=== PATIENT | female | born 1960 | race African-American/Black ===

== ENCOUNTER 2016-12-19 14:46 | Inpatient (IN) | payer MEDICAID ==
[~2016-12-19] VITALS: Ht 157.5 cm; Wt 65.0 kg
[~2016-12-19 14:46] MED LIST: DIPH25 PO; DIVA250T45 PO; OLAN7.5T2 PO
[2016-12-19 16:29] LABS: BASOPHILS # (AUTO) 0.02 K/uL (0.00-0.20); BASOPHILS % (AUTO) 0.3 % (0.0-2.0); EOSINOPHILS # (AUTO) 0.06 K/uL (0.00-0.70); EOSINOPHILS % (AUTO) 0.76 % (1.0-6.0); HEMATOCRIT 45.3 % (36-46); HEMOGLOBIN 14.7 g/dL (12.0-16.0); LYMPHOCYTES # (AUTO) 3.3 K/uL (1.0-4.8); LYMPHOCYTES % (AUTO) 40.2 % (22.0-44.0); MEAN CORPUSCULAR HGB CONC 32.4 G/dL (31.0-37.0); MEAN CORPUSCULAR VOLUME 90 fL (80-100); MONOCYTES # (AUTO) 0.6 K/uL (0.1-1.0); MONOCYTES % (AUTO) 6.7 % (2.0-9.0); NEUTROPHILS # (AUTO) 4.3 K/uL (1.8-7.7); NEUTROPHILS % (AUTO) 52.1 % (40.0-70.0); PLATELET COUNT (AUTO) 235 K/uL (150-450); RED BLOOD CELL COUNT(AUTO) 5.06 MIL/uL (4.00-5.20); RED CELL DISTRIBUTION WIDTH 14.5 % (11.5-14.5); WHITE BLOOD COUNT (AUTO) 8.2 K/uL (4.5-11.0)
[2016-12-19 16:41] LABS: ANION GAP 10 mmol/L (8-16); CALCIUM, TOTAL 9.6 mg/dL (8.8-10.5); CARBON DIOXIDE 29 mmol/L (22-29); CHLORIDE 101 mmol/L (98-107); CREATININE 1.16 mg/dL (0.60-1.30); GLOMERULAR FILTR. RATE CALC 58 mL/min (>60); POTASSIUM 3.9 mmol/L (3.5-5.1); SODIUM SERUM 140 mmol/L (136-145); UREA NITROGEN, BLOOD 8 mg/dL (7-18)
[2016-12-19 16:47] LABS: ALANINE AMINOTRANSFERASE 58 U/L (12-78); ALBUMIN 4.2 g/dL (3.4-5.0); ASPARTATE AMINOTRANSFERASE 44 U/L (15-37); BILIRUBIN,TOTAL 0.5 mg/dL (0.1-1.0); TOTAL PROTEIN, SERUM 9.6 g/dL (6.4-8.2)
[2016-12-19] MEDS ORDERED: LORazepam 2 MG/ML VIAL IM ONE (19:15)
[2016-12-19] MEDS ORDERED: DiphenhydrAMINE HCL 50 MG/ML VIAL IM ONE (19:15)
[2016-12-19] MEDS ORDERED: HALOPERIDOL LACTATE 5 MG/ML VIAL IM ONE (19:15)
[2016-12-19] MEDS ORDERED: HALOPERIDOL 5 MG TABLET PO PRN (23:45)
[2016-12-19] MEDS ORDERED: ZOLPIDEM TARTRATE 10 MG TABLET PO PRN (23:45)
[2016-12-19] MEDS ORDERED: LORazepam 2 MG TABLET PO PRN (23:45)
[2016-12-19 23:51] VITALS: BP 134/90
[2016-12-20 00:27] VITALS: BP 134/90
[2016-12-20 10:42] VITALS: BP 144/64
[2016-12-20 16:54] VITALS: BP 115/66
[2016-12-20] MEDS ORDERED: DIVALPROEX SODIUM 250 MG ER TABLET PO SCH (21:00)
[2016-12-20] MEDS ORDERED: DiphenhydrAMINE HCL 25 MG CAPSULE PO SCH (21:00)
[2016-12-20] MEDS: DiphenhydrAMINE HCL 50 MG CAPSULE PO SCH (21:21)
[2016-12-20] MEDS: OLANZapine 7.5 MG TABLET PO SCH (21:22)
[2016-12-20] MEDS: DIVALPROEX SODIUM 250 MG ER TABLET PO SCH (21:23)
[2016-12-20] MEDS ORDERED: ACETAMINOPHEN 325 MG TABLET PO PRN (22:45)
[2016-12-20] MEDS ORDERED: IBUPROFEN 400 MG TABLET PO PRN (22:45)
[2016-12-21 07:04] LABS: BASOPHILS % (AUTO) 0.5 % (0.0-2.0); EOSINOPHILS % (AUTO) 3.3 % (1.0-6.0); HEMATOCRIT 45.7 % (36-46); HEMOGLOBIN 14.6 g/dL (12.0-16.0); LYMPHOCYTES # (AUTO) 3.2 K/uL (1.0-4.8); LYMPHOCYTES % (AUTO) 61.6 % (22.0-44.0); MEAN CORPUSCULAR VOLUME 91 fL (80-100); MONOCYTES # (AUTO) 0.4 K/uL (0.1-1.0); MONOCYTES % (AUTO) 7.2 % (2.0-9.0); NEUTROPHILS # (AUTO) 1.4 K/uL (1.8-7.7); NEUTROPHILS % (AUTO) 27.4 % (40.0-70.0); PLATELET COUNT (AUTO) 192 K/uL (150-450); RED BLOOD CELL COUNT(AUTO) 5.04 MIL/uL (4.00-5.20); RED CELL DISTRIBUTION WIDTH 14.6 % (11.5-14.5); WHITE BLOOD COUNT (AUTO) 5.2 K/uL (4.5-11.0)
[2016-12-21 07:05] VITALS: BP 120/70
[2016-12-21 07:38] LABS: THYROID STIMULATING HORMONE 1.19 uIU/mL (0.36-3.74)
[2016-12-21 07:56] LABS: HEMOGLOBIN A1C 5.3 % (4.5-6.2)
[2016-12-21 08:00] VITALS: BP 108/71
[2016-12-21 16:44] VITALS: BP 116/58
[2016-12-21] MEDS: DIVALPROEX SODIUM 250 MG ER TABLET PO SCH (21:03)
[2016-12-21] MEDS: DiphenhydrAMINE HCL 50 MG CAPSULE PO SCH (21:04)
[2016-12-21] MEDS: OLANZapine 7.5 MG TABLET PO SCH (21:04)
[2016-12-22 08:03] VITALS: BP 129/87
[2016-12-22 17:04] VITALS: BP 122/72
[2016-12-22] MEDS: DiphenhydrAMINE HCL 50 MG CAPSULE PO SCH (20:08)
[2016-12-22] MEDS: OLANZapine 7.5 MG TABLET PO SCH (20:08)
[2016-12-22] MEDS: DIVALPROEX SODIUM 250 MG ER TABLET PO SCH (20:08)
[2016-12-23 08:05] VITALS: BP 140/73
[2016-12-23 18:08] VITALS: BP 118/77
[2016-12-23] MEDS: DIVALPROEX SODIUM 250 MG ER TABLET PO SCH (20:09)
[2016-12-23] MEDS: OLANZapine 7.5 MG TABLET PO SCH (20:09)
[2016-12-23] MEDS: DiphenhydrAMINE HCL 50 MG CAPSULE PO SCH (20:09)
[2016-12-24 08:07] VITALS: BP 126/77
== END 2016-12-24 14:22 | disposition home or self-care (01) | DRG 750 ==
LOC: EMS 14:47 → 3EI 12-20 00:04 → EMS 12-20 00:12
DX: F25.0 Schizoaffective disorder, bipolar type (principal); R45.851 Suicidal ideations; G89.29 Other chronic pain; N18.9 Chronic kidney disease, unspecified; F17.210 Nicotine dependence, cigarettes, uncomplicated; M54.9 Dorsalgia, unspecified; F19.10 Other psychoactive substance abuse, uncomplicated; F99 Mental disorder, not otherwise specified; Z91.5 Personal history of self-harm; Z79.899 Other long term (current) drug therapy
CPT/HCPCS: 83036; 84443; 96372; 99285; G0480; J1200; J1630; J2060

== ENCOUNTER 2017-02-22 14:47 | Emergency (ER) | payer MEDICAID ==
[~2017-02-22] VITALS: Ht 157.5 cm; Wt 63.5 kg
[2017-02-22] MEDS ORDERED: IBUPROFEN 800 MG TABLET PO ONE (17:00)
[2017-02-22 17:05] VITALS: BP 139/67
== END 2017-02-22 17:50 | disposition home or self-care (01) ==
LOC: EMS 14:48
DX: S52.501A Unspecified fracture of the lower end of right radius, initial encounter for closed fracture (principal); R03.0 Elevated blood-pressure reading, without diagnosis of hypertension; F17.210 Nicotine dependence, cigarettes, uncomplicated; W01.0XXA Fall on same level from slipping, tripping and stumbling without subsequent striking against object, initial encounter; Y93.89 Activity, other specified; Y92.89 Other specified places as the place of occurrence of the external cause; Y99.8 Other external cause status
CPT/HCPCS: 99284

== ENCOUNTER 2017-04-05 11:34 | Emergency (ER) | payer MEDICAID ==
[~2017-04-05] VITALS: Ht 157.5 cm; Wt 54.5 kg
[2017-04-05] MEDS ORDERED: IBUPROFEN 600 MG TABLET PO ONE (13:30)
[2017-04-05 14:44] VITALS: BP 128/77
== END 2017-04-05 14:47 | disposition home or self-care (01) ==
LOC: EMS 11:35
DX: M25.531 Pain in right wrist (principal); F17.210 Nicotine dependence, cigarettes, uncomplicated
CPT/HCPCS: 99283

== ENCOUNTER 2017-08-10 11:51 | Emergency (ER) | payer MEDICAID ==
[~2017-08-10] VITALS: Ht 157.5 cm; Wt 54.5 kg
[2017-08-10 12:36] LABS: BASOPHILS # (AUTO) 0.03 K/uL (0.00-0.20); BASOPHILS % (AUTO) 0.5 % (0.0-2.0); EOSINOPHILS # (AUTO) 0.18 K/uL (0.00-0.70); EOSINOPHILS % (AUTO) 3.28 % (1.0-6.0); HEMATOCRIT 40.6 % (36-46); HEMOGLOBIN 13.5 g/dL (12.0-16.0); LYMPHOCYTES # (AUTO) 2.9 K/uL (1.0-4.8); LYMPHOCYTES % (AUTO) 53.1 % (22.0-44.0); MEAN CORPUSCULAR HGB CONC 33.3 G/dL (31.0-37.0); MEAN CORPUSCULAR VOLUME 87 fL (80-100); MONOCYTES # (AUTO) 0.4 K/uL (0.1-1.0); MONOCYTES % (AUTO) 7.5 % (2.0-9.0); NEUTROPHILS # (AUTO) 1.9 K/uL (1.8-7.7); NEUTROPHILS % (AUTO) 35.5 % (40.0-70.0); PLATELET COUNT (AUTO) 183 K/uL (150-450); RED BLOOD CELL COUNT(AUTO) 4.66 MIL/uL (4.00-5.20); RED CELL DISTRIBUTION WIDTH 14.1 % (11.5-14.5); WHITE BLOOD COUNT (AUTO) 5.4 K/uL (4.5-11.0)
[2017-08-10 12:57] LABS: ANION GAP 8 mmol/L (8-16); CALCIUM, TOTAL 9.1 mg/dL (8.8-10.5); CARBON DIOXIDE 26 mmol/L (22-29); CHLORIDE 105 mmol/L (98-107); CREATININE 1.02 mg/dL (0.60-1.30); GLOMERULAR FILTR. RATE CALC > 60 mL/min (>60); POTASSIUM 3.7 mmol/L (3.5-5.1); SODIUM SERUM 139 mmol/L (136-145); UREA NITROGEN, BLOOD 15 mg/dL (7-18)
[2017-08-10 13:03] LABS: ALANINE AMINOTRANSFERASE 49 U/L (12-78); ALBUMIN 3.8 g/dL (3.4-5.0); ASPARTATE AMINOTRANSFERASE 38 U/L (15-37); BILIRUBIN,TOTAL 0.5 mg/dL (0.1-1.0)
[2017-08-10] MEDS ORDERED: HALOPERIDOL 5 MG TABLET PO ONE (13:15)
[2017-08-10 13:17] LABS: VALPROIC ACID < 3 mcg/mL (50-100)
[2017-08-10 14:08] VITALS: BP 126/88
== END 2017-08-10 14:18 | disposition home or self-care (01) ==
LOC: EMS 11:53
DX: F20.9 Schizophrenia, unspecified (principal); F41.9 Anxiety disorder, unspecified; F17.210 Nicotine dependence, cigarettes, uncomplicated
CPT/HCPCS: 36415; 80053; 80164; 85025; 99284; G0480

== ENCOUNTER 2017-09-03 07:50 | Inpatient (IN) | payer MEDICAID ==
[~2017-09-03] VITALS: Ht 157.5 cm; Wt 61.1 kg
[2017-09-03 08:26] LABS: BASOPHILS % (AUTO) 0.5 % (0.0-2.0); HEMATOCRIT 45.7 % (36-46); HEMOGLOBIN 15.4 g/dL (12.0-16.0); LYMPHOCYTES # (AUTO) 2.3 K/uL (1.0-4.8); LYMPHOCYTES % (AUTO) 39.4 % (22.0-44.0); MEAN CORPUSCULAR HEMOGLOBIN 29.6 pg (26.0-34.0); MEAN CORPUSCULAR HGB CONC 33.6 G/dL (31.0-37.0); MEAN CORPUSCULAR VOLUME 88 fL (80-100); MONOCYTES # (AUTO) 0.3 K/uL (0.1-1.0); MONOCYTES % (AUTO) 4.5 % (2.0-9.0); NEUTROPHILS # (AUTO) 3.2 K/uL (1.8-7.7); NEUTROPHILS % (AUTO) 54.6 % (40.0-70.0); PLATELET COUNT (AUTO) 256 K/uL (150-450); RED BLOOD CELL COUNT(AUTO) 5.18 MIL/uL (4.00-5.20); WHITE BLOOD COUNT (AUTO) 5.9 K/uL (4.5-11.0)
[2017-09-03 08:44] LABS: ANION GAP 10 mmol/L (8-16); CALCIUM, TOTAL 9.7 mg/dL (8.8-10.5); CARBON DIOXIDE 26 mmol/L (22-29); CHLORIDE 102 mmol/L (98-107); CREATININE 0.91 mg/dL (0.60-1.30); GLOMERULAR FILTR. RATE CALC > 60 mL/min (>60); POTASSIUM 3.7 mmol/L (3.5-5.1); SODIUM SERUM 138 mmol/L (136-145); UREA NITROGEN, BLOOD 8 mg/dL (7-18)
[2017-09-03 08:51] LABS: ALANINE AMINOTRANSFERASE 52 U/L (12-78); ALBUMIN 4.3 g/dL (3.4-5.0); ASPARTATE AMINOTRANSFERASE 37 U/L (15-37); BILIRUBIN,TOTAL 0.4 mg/dL (0.1-1.0); TOTAL PROTEIN, SERUM 9.1 g/dL (6.4-8.2)
[2017-09-03 08:54] LABS: VALPROIC ACID < 3 mcg/mL (50-100)
[2017-09-03] MEDS ORDERED: OLANZapine 5 MG TABLET PO ONE (09:15)
[2017-09-03] MEDS ORDERED: LORazepam 2 MG TABLET PO ONE (09:15)
[2017-09-03] MEDS ORDERED: HALOPERIDOL 5 MG TABLET PO PRN (09:45)
[2017-09-03] MEDS ORDERED: LORazepam 2 MG TABLET PO PRN (09:45)
[2017-09-03] MEDS ORDERED: ZOLPIDEM TARTRATE 10 MG TABLET PO PRN (09:45)
[2017-09-03] MEDS: DIVALPROEX SODIUM 250 MG ER TABLET PO SCH (22:01)
[2017-09-03] MEDS: OLANZapine 7.5 MG TABLET PO SCH (22:01)
[2017-09-03] MEDS: DiphenhydrAMINE HCL 25 MG CAPSULE PO SCH (22:01)
[2017-09-03 22:04] VITALS: BP 116/62
[2017-09-03] MEDS ORDERED: INFLUENZA VIRUS VACCINE QVS 2017-18 (3YR+)/PF 60 MCG/0.5 ML SYRINGE IM ONE (22:45)
[2017-09-04 09:58] VITALS: BP 110/70
[2017-09-04] MEDS ORDERED: ACETAMINOPHEN 325 MG TABLET PO PRN (14:00)
[2017-09-04] MEDS ORDERED: IBUPROFEN 400 MG TABLET PO PRN (14:00)
[2017-09-04 18:25] VITALS: BP 112/82
[2017-09-04] MEDS: DIVALPROEX SODIUM 250 MG ER TABLET PO SCH (20:16)
[2017-09-04] MEDS: OLANZapine 7.5 MG TABLET PO SCH (20:16)
[2017-09-04] MEDS: DiphenhydrAMINE HCL 25 MG CAPSULE PO SCH (20:17)
[2017-09-05 08:51] VITALS: BP 110/76
[2017-09-05 16:09] VITALS: BP 122/68
[2017-09-05] MEDS: DiphenhydrAMINE HCL 25 MG CAPSULE PO SCH (20:37)
[2017-09-05] MEDS: OLANZapine 7.5 MG TABLET PO SCH (20:38)
[2017-09-05] MEDS: DIVALPROEX SODIUM 250 MG ER TABLET PO SCH (20:38)
[2017-09-06 08:14] VITALS: BP 125/72
[2017-09-06 16:10] VITALS: BP 117/65
[2017-09-06] MEDS: OLANZapine 7.5 MG TABLET PO SCH (20:38)
[2017-09-06] MEDS: DiphenhydrAMINE HCL 25 MG CAPSULE PO SCH (20:38)
[2017-09-06] MEDS: DIVALPROEX SODIUM 250 MG ER TABLET PO SCH (20:38)
[2017-09-07 06:33] VITALS: BP 123/63
[2017-09-07 08:41] VITALS: BP 135/70
[2017-09-07 16:18] VITALS: BP 133/73
[2017-09-07] MEDS: DiphenhydrAMINE HCL 25 MG CAPSULE PO SCH (20:14)
[2017-09-07] MEDS: DIVALPROEX SODIUM 250 MG ER TABLET PO SCH (20:14)
[2017-09-07] MEDS: OLANZapine 7.5 MG TABLET PO SCH (20:14)
[2017-09-08 06:02] VITALS: BP 130/76
[2017-09-08 08:25] VITALS: BP 128/73
[2017-09-08 16:07] VITALS: BP 118/66
[2017-09-08] MEDS: DIVALPROEX SODIUM 250 MG ER TABLET PO SCH (20:26)
[2017-09-08] MEDS: DiphenhydrAMINE HCL 25 MG CAPSULE PO SCH (20:26)
[2017-09-08] MEDS: OLANZapine 7.5 MG TABLET PO SCH (20:26)
[2017-09-09 06:27] VITALS: BP 129/78
[2017-09-09 08:30] VITALS: BP 151/72
[2017-09-09 16:00] VITALS: BP 137/71
[2017-09-09] MEDS: DIVALPROEX SODIUM 250 MG ER TABLET PO SCH (20:11)
[2017-09-09] MEDS: DiphenhydrAMINE HCL 25 MG CAPSULE PO SCH (20:11)
[2017-09-09] MEDS: OLANZapine 7.5 MG TABLET PO SCH (20:11)
[2017-09-10 06:33] VITALS: BP 134/74
[2017-09-10 08:47] VITALS: BP 126/55
== END 2017-09-10 13:10 | disposition home or self-care (01) | DRG 750 ==
LOC: EEVIPCON 07:51 → EMS 07:51 → B3A 20:34
PROVIDERS: ADMIT Psychiatry & Neurology Psychiatry; ATTEND Psychiatry & Neurology Child & Adolescent Psychiatry
DX: F25.1 Schizoaffective disorder, depressive type (principal); N18.3 Chronic kidney disease, stage 3 (moderate); F39 Unspecified mood [affective] disorder; I12.9 Hypertensive chronic kidney disease with stage 1 through stage 4 chronic kidney disease, or unspecified chronic kidney disease; F10.10 Alcohol abuse, uncomplicated; F17.200 Nicotine dependence, unspecified, uncomplicated; M54.9 Dorsalgia, unspecified; G89.29 Other chronic pain; Z71.6 Tobacco abuse counseling; Y90.9 Presence of alcohol in blood, level not specified; Z28.21 Immunization not carried out because of patient refusal
CPT/HCPCS: 99285; G0480

== ENCOUNTER 2017-09-27 05:02 | Inpatient (IN) | payer MEDICAID ==
[~2017-09-27] VITALS: Ht 157.5 cm; Wt 64.8 kg
[2017-09-27 05:36] LABS: BASOPHILS % (AUTO) 0.7 % (0.0-2.0); EOSINOPHILS % (AUTO) 8.2 % (1.0-6.0); HEMATOCRIT 42.3 % (36-46); HEMOGLOBIN 14.2 g/dL (12.0-16.0); LYMPHOCYTES # (AUTO) 2.6 K/uL (1.0-4.8); MEAN CORPUSCULAR HEMOGLOBIN 29.5 pg (26.0-34.0); MEAN CORPUSCULAR HGB CONC 33.5 G/dL (31.0-37.0); MEAN CORPUSCULAR VOLUME 88 fL (80-100); MONOCYTES # (AUTO) 0.6 K/uL (0.1-1.0); MONOCYTES % (AUTO) 7.8 % (2.0-9.0); NEUTROPHILS # (AUTO) 3.5 K/uL (1.8-7.7); NEUTROPHILS % (AUTO) 48.3 % (40.0-70.0); PLATELET COUNT (AUTO) 354 K/uL (150-450); RED CELL DISTRIBUTION WIDTH 15.7 % (11.5-14.5); WHITE BLOOD COUNT (AUTO) 7.3 K/uL (4.5-11.0)
[2017-09-27 05:46] LABS: ANION GAP 7 mmol/L (8-16); CALCIUM, TOTAL 9.5 mg/dL (8.8-10.5); CARBON DIOXIDE 30 mmol/L (22-29); CHLORIDE 102 mmol/L (98-107); CREATININE 1.02 mg/dL (0.60-1.30); GLOMERULAR FILTR. RATE CALC > 60 mL/min (>60); POTASSIUM 4.2 mmol/L (3.5-5.1); SODIUM SERUM 139 mmol/L (136-145); UREA NITROGEN, BLOOD 15 mg/dL (7-18)
[2017-09-27 05:52] LABS: ALANINE AMINOTRANSFERASE 65 U/L (12-78); ALBUMIN 3.7 g/dL (3.4-5.0); ASPARTATE AMINOTRANSFERASE 52 U/L (15-37); BILIRUBIN,TOTAL 0.3 mg/dL (0.1-1.0); TOTAL PROTEIN, SERUM 8.8 g/dL (6.4-8.2)
[2017-09-27] MEDS ORDERED: ZOLPIDEM TARTRATE 10 MG TABLET PO PRN (06:00)
[2017-09-27] MEDS ORDERED: HALOPERIDOL 5 MG TABLET PO PRN (06:00)
[2017-09-27] MEDS ORDERED: LORazepam 2 MG TABLET PO PRN (06:00)
[2017-09-27] MEDS ORDERED: DiphenhydrAMINE HCL 50 MG/ML VIAL IM ONE (06:00)
[2017-09-27] MEDS ORDERED: LORazepam 2 MG/ML VIAL IM ONE (06:00)
[2017-09-27] MEDS ORDERED: HALOPERIDOL LACTATE 5 MG/ML VIAL IM ONE (06:00)
[2017-09-27 06:16] LABS: APPEARANCE,URINE CLEAR (CLEAR); GLUCOSE, URINE (UA) NEGATIVE (NEGATIVE); KETONES,URINE NEGATIVE (NEGATIVE); LEUKOCYTE ESTERASE ,URINE NEGATIVE (NEGATIVE); OCCULT BLOOD,URINE NEGATIVE (NEGATIVE); PH,URINE 5.5 (5.0-8.0); PROTEIN,URINE NEGATIVE (NEGATIVE)
[2017-09-27 06:17] LABS: ADD UA MICROSCOPIC NO
[2017-09-27 06:25] LABS: CHOL/HDL RATIO 2.3 (3.9-5.7); THYROID STIMULATING HORMONE 5.53 uIU/mL (0.36-3.74)
[2017-09-27 10:52] VITALS: BP 130/84
[2017-09-27 17:22] VITALS: BP 128/74
[2017-09-28 07:19] VITALS: BP 125/76
[2017-09-28 08:28] VITALS: BP 124/81
[2017-09-28 16:00] VITALS: BP 100/62
[2017-09-28] MEDS: OLANZapine 7.5 MG TABLET PO SCH (21:35)
[2017-09-28] MEDS: DiphenhydrAMINE HCL 25 MG CAPSULE PO SCH (21:35)
[2017-09-28] MEDS: DIVALPROEX SODIUM 250 MG ER TABLET PO SCH (21:35)
[2017-09-29 06:33] VITALS: BP 128/76
[2017-09-29 08:39] VITALS: BP 131/75
[2017-09-29] MEDS: SERTRALINE HCL 50 MG TABLET PO SCH (08:57)
[2017-09-29 16:25] VITALS: BP 114/72
[2017-09-29] MEDS: OLANZapine 7.5 MG TABLET PO SCH (20:36)
[2017-09-29] MEDS: DiphenhydrAMINE HCL 25 MG CAPSULE PO SCH (20:36)
[2017-09-29] MEDS: DIVALPROEX SODIUM 250 MG ER TABLET PO SCH (20:36)
[2017-09-30 07:07] VITALS: BP 115/70
[2017-09-30 08:12] VITALS: BP 136/67
[2017-09-30] MEDS: SERTRALINE HCL 50 MG TABLET PO SCH (08:50)
[2017-09-30 09:39] LABS: THYROID STIMULATING HORMONE 1.17 uIU/mL (0.36-3.74)
[2017-09-30 17:35] VITALS: BP 108/61
[2017-09-30] MEDS: OLANZapine 7.5 MG TABLET PO SCH (20:24)
[2017-09-30] MEDS: DiphenhydrAMINE HCL 25 MG CAPSULE PO SCH (20:24)
[2017-09-30] MEDS: DIVALPROEX SODIUM 250 MG ER TABLET PO SCH (20:25)
[2017-10-01 07:10] VITALS: BP 107/65
[2017-10-01] MEDS: SERTRALINE HCL 50 MG TABLET PO SCH (08:11)
[2017-10-01 08:45] VITALS: BP 110/62
[2017-10-01 16:00] VITALS: BP 101/71
[2017-10-01] MEDS: DIVALPROEX SODIUM 250 MG ER TABLET PO SCH (20:20)
[2017-10-01] MEDS: OLANZapine 7.5 MG TABLET PO SCH (20:20)
[2017-10-01] MEDS: DiphenhydrAMINE HCL 25 MG CAPSULE PO SCH (20:21)
[2017-10-02 06:51] VITALS: BP 138/61
[2017-10-02] MEDS: SERTRALINE HCL 50 MG TABLET PO SCH (08:20)
[2017-10-02 08:24] VITALS: BP 129/82
[2017-10-02 10:29] LABS: HEPATITIS Bs ANTIGEN SCREEN P Negative (Negative); HEPATITIS C AB SCREEN >11.0 s/co ratio (0.0-0.9)
[2017-10-02 16:10] VITALS: BP 129/77
[2017-10-02] MEDS: OLANZapine 7.5 MG TABLET PO SCH (20:39)
[2017-10-02] MEDS: DiphenhydrAMINE HCL 25 MG CAPSULE PO SCH (20:39)
[2017-10-02] MEDS: DIVALPROEX SODIUM 250 MG ER TABLET PO SCH (20:39)
[2017-10-03 06:20] VITALS: BP 138/75
[2017-10-03] MEDS: SERTRALINE HCL 50 MG TABLET PO SCH (09:18)
[2017-10-03 13:07] VITALS: BP 143/71
[2017-10-03 16:11] VITALS: BP 121/67
[2017-10-03] MEDS: DIVALPROEX SODIUM 250 MG ER TABLET PO SCH (21:12)
[2017-10-03] MEDS: DiphenhydrAMINE HCL 25 MG CAPSULE PO SCH (21:12)
[2017-10-03] MEDS: OLANZapine 7.5 MG TABLET PO SCH (21:13)
[2017-10-04 06:25] VITALS: BP 139/74
[2017-10-04] MEDS: SERTRALINE HCL 50 MG TABLET PO SCH (09:01)
[2017-10-04 09:02] VITALS: BP 109/73
[2017-10-04] MEDS ORDERED: SERT50TA12 PO (11:26)
== END 2017-10-04 15:20 | disposition home or self-care (01) | DRG 750 ==
LOC: EMS 05:03 → B3A 10:06
PROVIDERS: ADMIT Psychiatry & Neurology Child & Adolescent Psychiatry; ATTEND Psychiatry & Neurology Child & Adolescent Psychiatry
DX: F25.1 Schizoaffective disorder, depressive type (principal); R45.851 Suicidal ideations; N18.3 Chronic kidney disease, stage 3 (moderate); F15.20 Other stimulant dependence, uncomplicated; G25.9 Extrapyramidal and movement disorder, unspecified; F41.9 Anxiety disorder, unspecified; F10.20 Alcohol dependence, uncomplicated; M54.5 Low back pain; I12.9 Hypertensive chronic kidney disease with stage 1 through stage 4 chronic kidney disease, or unspecified chronic kidney disease; F17.210 Nicotine dependence, cigarettes, uncomplicated; Z79.899 Other long term (current) drug therapy; Z71.41 Alcohol abuse counseling and surveillance of alcoholic; Z71.6 Tobacco abuse counseling; Z71.51 Drug abuse counseling and surveillance of drug abuser
CPT/HCPCS: 80074; 84439; 84443; 87081; 96372; 99285; G0480; J1200; J1630; J2060

== ENCOUNTER 2018-02-24 16:37 | Emergency (ER) | payer MEDICAID ==
[~2018-02-24] VITALS: Ht 157.5 cm; Wt 70.9 kg
[~2018-02-24 16:37] MED LIST changes: +SERT50TA12 PO
[2018-02-24 18:35] LABS: GLUCOSE,POINT OF CARE 106 MG/DL (70-110)
[2018-02-24 20:00] LABS: BASOPHILS % (AUTO) 0.6 % (0.0-2.0); EOSINOPHILS % (AUTO) 3.1 % (1.0-6.0); HEMATOCRIT 39.1 % (36-46); LYMPHOCYTES # (AUTO) 2.4 K/uL (1.0-4.8); LYMPHOCYTES % (AUTO) 36.6 % (22.0-44.0); MEAN CORPUSCULAR HGB CONC 33.2 G/dL (31.0-37.0); MEAN CORPUSCULAR VOLUME 88 fL (80-100); MONOCYTES # (AUTO) 0.4 K/uL (0.1-1.0); MONOCYTES % (AUTO) 6.6 % (2.0-9.0); NEUTROPHILS # (AUTO) 3.4 K/uL (1.8-7.7); NEUTROPHILS % (AUTO) 53.1 % (40.0-70.0); PLATELET COUNT (AUTO) 261 K/uL (150-450); RED BLOOD CELL COUNT(AUTO) 4.47 MIL/uL (4.00-5.20); RED CELL DISTRIBUTION WIDTH 15.1 % (11.5-14.5)
[2018-02-24] MEDS ORDERED: KETOROLAC TROMETHAMINE 30 MG/ML VIAL IM ONE (20:30)
[2018-02-24 20:46] LABS: PROTHROMBIN TIME 10.3 SEC (9.4-11.6)
[2018-02-24 20:49] LABS: ANION GAP 8 mmol/L (8-16); CALCIUM, TOTAL 8.9 mg/dL (8.8-10.5); CARBON DIOXIDE 26 mmol/L (22-29); CHLORIDE 105 mmol/L (98-107); CREATININE 0.89 mg/dL (0.60-1.30); GLOMERULAR FILTR. RATE CALC > 60 mL/min (>60); GLUCOSE,RANDOM 100 mg/dL (70-110); POTASSIUM 3.7 mmol/L (3.5-5.1); SODIUM SERUM 139 mmol/L (136-145); UREA NITROGEN, BLOOD 11 mg/dL (7-18)
[2018-02-24 20:51] LABS: AMPHET/METH SCREEN,URINE NEGATIVE (NEGATIVE); BARBITURATE SCREEN, URINE NEGATIVE (NEGATIVE); BENZODIAZEPINES SCREEN,URINE NEGATIVE (NEGATIVE); CANNABINOID SCREEN,URINE NEGATIVE (NEGATIVE); COCAINE SCREEN,URINE NEGATIVE (NEGATIVE); METHADONE SCREEN, URINE NEGATIVE (NEGATIVE); OPIATE SCREEN,URINE NEGATIVE (NEGATIVE); PHENCYCLIDINE SCREEN,URINE NEGATIVE (NEGATIVE)
[2018-02-24 20:52] LABS: AMMONIA 20 umol/L (11-32)
[2018-02-24 20:53] LABS: TROPONIN I < 0.02 ng/mL (0.00-0.05)
[2018-02-24 20:59] LABS: APPEARANCE,URINE CLEAR (CLEAR); BILIRUBIN,URINE NEGATIVE (NEGATIVE); GLUCOSE, URINE (UA) NEGATIVE (NEGATIVE); KETONES,URINE NEGATIVE (NEGATIVE); LEUKOCYTE ESTERASE ,URINE NEGATIVE (NEGATIVE); NITRATE,URINE NEGATIVE (NEGATIVE); OCCULT BLOOD,URINE NEGATIVE (NEGATIVE); PH,URINE 5.5 (5.0-8.0); PROTEIN,URINE NEGATIVE (NEGATIVE); UROBILINOGEN,URINE 0.2 mg/dL (<=1.0)
[2018-02-24 21:11] LABS: ALANINE AMINOTRANSFERASE 36 U/L (12-78); ALBUMIN 3.2 g/dL (3.4-5.0); ALKALINE PHOSPHATASE 92 U/L (46-116); ASPARTATE AMINOTRANSFERASE 38 U/L (15-37); BILIRUBIN,TOTAL 0.3 mg/dL (0.1-1.0); CREATINE KINASE MB 0.9 ng/mL (0-5); CREATINE KINASE, TOTAL 202 U/L (26-192); TOTAL PROTEIN, SERUM 7.6 g/dL (6.4-8.2)
[2018-02-24 21:18] LABS: VALPROIC ACID 7 mcg/mL (50-100)
[2018-02-24 22:18] VITALS: BP 135/74
== END 2018-02-24 22:43 | disposition home or self-care (01) ==
LOC: EMS 16:39
DX: G89.29 Other chronic pain (principal); M54.5 Low back pain; R10.9 Unspecified abdominal pain; F20.9 Schizophrenia, unspecified; F17.210 Nicotine dependence, cigarettes, uncomplicated; Z79.899 Other long term (current) drug therapy; W19.XXXA Unspecified fall, initial encounter; Y93.89 Activity, other specified; Y92.89 Other specified places as the place of occurrence of the external cause; Y99.8 Other external cause status
CPT/HCPCS: 36415; 71045; 72170; 80053; 80164; 80307; 81003; 82140; 82550; 82553; 82962; 84484; 85025; 85610; 85730; 93005; 96372; 99285; G0480; J1885

== ENCOUNTER 2018-08-12 11:04 | Inpatient (IN) | payer MEDICAID ==
[~2018-08-12] VITALS: Ht 157.5 cm; Wt 52.2 kg
[2018-08-12 11:53] LABS: BASOPHILS % (AUTO) 0.7 % (0.0-2.0); EOSINOPHILS % (AUTO) 3.2 % (1.0-6.0); HEMATOCRIT 38.5 % (36-46); HEMOGLOBIN 12.4 g/dL (12.0-16.0); LYMPHOCYTES # (AUTO) 2.9 K/uL (1.0-4.8); LYMPHOCYTES % (AUTO) 49.3 % (22.0-44.0); MEAN CORPUSCULAR HEMOGLOBIN 28.2 pg (26.0-34.0); MEAN CORPUSCULAR HGB CONC 32.3 G/dL (31.0-37.0); MEAN CORPUSCULAR VOLUME 87 fL (80-100); MONOCYTES # (AUTO) 0.4 K/uL (0.1-1.0); MONOCYTES % (AUTO) 6.5 % (2.0-9.0); NEUTROPHILS # (AUTO) 2.4 K/uL (1.8-7.7); NEUTROPHILS % (AUTO) 40.3 % (40.0-70.0); PLATELET COUNT (AUTO) 235 K/uL (150-450); RED BLOOD CELL COUNT(AUTO) 4.41 MIL/uL (4.00-5.20)
[2018-08-12 12:02] LABS: ANION GAP 9 mmol/L (8-16); CALCIUM, TOTAL 8.9 mg/dL (8.8-10.5); CARBON DIOXIDE 27 mmol/L (22-29); CHLORIDE 106 mmol/L (98-107); CREATININE 0.76 mg/dL (0.60-1.30); GLOMERULAR FILTR. RATE CALC > 60 mL/min (>60); GLUCOSE,RANDOM 74 mg/dL (70-110); POTASSIUM 3.2 mmol/L (3.5-5.1); SODIUM SERUM 142 mmol/L (136-145); UREA NITROGEN, BLOOD 9 mg/dL (7-18)
[2018-08-12 12:08] LABS: ALANINE AMINOTRANSFERASE 26 U/L (12-78); ALBUMIN 3.3 g/dL (3.4-5.0); ALKALINE PHOSPHATASE 83 U/L (46-116); ASPARTATE AMINOTRANSFERASE 34 U/L (15-37); BILIRUBIN,TOTAL 0.5 mg/dL (0.1-1.0); TOTAL PROTEIN, SERUM 7.4 g/dL (6.4-8.2)
[2018-08-12 13:44] LABS: VALPROIC ACID < 3 mcg/mL (50-100)
[2018-08-12] MEDS ORDERED: ZOLPIDEM TARTRATE 10 MG TABLET PO PRN (14:15)
[2018-08-12] MEDS ORDERED: HALOPERIDOL 5 MG TABLET PO PRN (14:15)
[2018-08-12] MEDS ORDERED: LORazepam 2 MG TABLET PO PRN (14:15)
[2018-08-12] MEDS ORDERED: PETROLATUM,WHITE 71 GM JELLY TP PRN (17:30)
[2018-08-12] MEDS ORDERED: POTASSIUM CHLORIDE 10% 40 MEQ/30 ML LIQUID UDCUP PO ONE (17:30)
[2018-08-12] MEDS ORDERED: CloNIDine HCL 0.1 MG TABLET PO PRN (17:30)
[2018-08-12] MEDS ORDERED: ONDANSETRON HCL 4 MG TABLET PO PRN (17:30)
[2018-08-12] MEDS ORDERED: DOCUSATE SODIUM 100 MG CAPSULE PO PRN (17:30)
[2018-08-12] MEDS ORDERED: ALBUTEROL SULFATE HFA 90 MCG/PUFF 8 GM INHALER IH PRN (17:30)
[2018-08-12] MEDS ORDERED: IBUPROFEN 400 MG TABLET PO PRN (17:30)
[2018-08-12] MEDS ORDERED: ACETAMINOPHEN 325 MG TABLET PO PRN (17:30)
[2018-08-12] MEDS ORDERED: MAGNESIUM HYDROXIDE SUSPENSION 30 ML UDCUP PO PRN (17:30)
[2018-08-12] MEDS ORDERED: NICOTINE 14 MG/24 HOUR PATCH TD PRN (17:30)
[2018-08-12] MEDS ORDERED: GuaiFENesin/D-METHORPHAN [SUGAR-FREE] 200-20MG/10 ML SYRUP UDCUP PO PRN (17:30)
[2018-08-12] MEDS ORDERED: LOPERAMIDE HCL 2 MG CAPSULE PO PRN (17:30)
[2018-08-12 19:30] VITALS: BP 149/74
[2018-08-12] MEDS ORDERED: AmLODIPine BESYLATE 2.5 MG TABLET PO ONE (19:45)
[2018-08-12] MEDS ORDERED: PNEUMOCOCCAL VACCINE POLYVALENT 0.5 ML VIAL [PPSV23] IM ONE (21:15)
[2018-08-12] MEDS: DiphenhydrAMINE HCL 25 MG CAPSULE PO SCH (21:32)
[2018-08-12] MEDS: DIVALPROEX SODIUM 250 MG ER TABLET PO SCH (21:33)
[2018-08-12] MEDS: OLANZapine 5 MG TABLET PO SCH (21:35)
[2018-08-13 06:11] VITALS: BP 120/69
[2018-08-13 08:19] VITALS: BP 120/65
[2018-08-13] MEDS: AmLODIPine BESYLATE 2.5 MG TABLET PO SCH (08:41)
[2018-08-13] MEDS: SERTRALINE HCL 50 MG TABLET PO SCH (08:41)
[2018-08-13 16:11] VITALS: BP 111/57
[2018-08-13] MEDS: OLANZapine 5 MG TABLET PO SCH (20:47)
[2018-08-13] MEDS: DIVALPROEX SODIUM 250 MG ER TABLET PO SCH (20:47)
[2018-08-13] MEDS: DiphenhydrAMINE HCL 25 MG CAPSULE PO SCH (20:47)
[2018-08-13] MEDS ORDERED: POTASSIUM CHLORIDE 20 MEQ ER TABLET PO ONE (22:00)
[2018-08-14 01:45] VITALS: BP 105/60
[2018-08-14 08:25] VITALS: BP 108/70
[2018-08-14] MEDS: AmLODIPine BESYLATE 2.5 MG TABLET PO SCH (09:52)
[2018-08-14] MEDS: SERTRALINE HCL 50 MG TABLET PO SCH (09:53)
[2018-08-14 16:08] VITALS: BP 110/65
[2018-08-14] MEDS: DiphenhydrAMINE HCL 25 MG CAPSULE PO SCH (20:37)
[2018-08-14] MEDS: OLANZapine 5 MG TABLET PO SCH (20:37)
[2018-08-14] MEDS: DIVALPROEX SODIUM 250 MG ER TABLET PO SCH (20:37)
[2018-08-15 02:23] VITALS: BP 118/66
[2018-08-15 08:15] VITALS: BP 101/76
[2018-08-15] MEDS: AmLODIPine BESYLATE 2.5 MG TABLET PO SCH (08:27)
[2018-08-15] MEDS: SERTRALINE HCL 50 MG TABLET PO SCH (08:27)
[2018-08-15 08:56] LABS: CHOL/HDL RATIO 2.3 (3.9-5.7); POTASSIUM 4.2 mmol/L (3.5-5.1)
[2018-08-15 16:25] VITALS: BP 117/68
[2018-08-15] MEDS: OLANZapine 5 MG TABLET PO SCH (20:56)
[2018-08-15] MEDS: DIVALPROEX SODIUM 250 MG ER TABLET PO SCH (20:56)
[2018-08-15] MEDS: DiphenhydrAMINE HCL 25 MG CAPSULE PO SCH (20:56)
[2018-08-16 02:09] VITALS: BP 116/64
[2018-08-16 08:11] VITALS: BP_SYST 104; BP_SYST 115; BP_DIAS 51; BP_DIAS 64
[2018-08-16] MEDS: SERTRALINE HCL 50 MG TABLET PO SCH (08:40)
[2018-08-16] MEDS: AmLODIPine BESYLATE 2.5 MG TABLET PO SCH (08:40)
[2018-08-16 16:12] VITALS: BP 102/60
[2018-08-16] MEDS: DIVALPROEX SODIUM 250 MG ER TABLET PO SCH (20:27)
[2018-08-16] MEDS: DiphenhydrAMINE HCL 25 MG CAPSULE PO SCH (20:27)
[2018-08-16] MEDS: OLANZapine 5 MG TABLET PO SCH (20:27)
[2018-08-17 05:48] VITALS: BP 115/70
[2018-08-17 08:08] VITALS: BP 116/68
[2018-08-17] MEDS: AmLODIPine BESYLATE 2.5 MG TABLET PO SCH (08:47)
[2018-08-17] MEDS: SERTRALINE HCL 50 MG TABLET PO SCH (08:47)
[2018-08-17 16:18] VITALS: BP 103/61
[2018-08-17] MEDS: DIVALPROEX SODIUM 250 MG ER TABLET PO SCH (20:14)
[2018-08-17] MEDS: DiphenhydrAMINE HCL 25 MG CAPSULE PO SCH (20:14)
[2018-08-17] MEDS: OLANZapine 5 MG TABLET PO SCH (20:15)
[2018-08-18 03:27] VITALS: BP 104/60
[2018-08-18 08:29] VITALS: BP 107/60
[2018-08-18 09:05] VITALS: BP 113/70
[2018-08-18] MEDS: AmLODIPine BESYLATE 2.5 MG TABLET PO SCH (09:10)
[2018-08-18] MEDS: SERTRALINE HCL 50 MG TABLET PO SCH (09:10)
[2018-08-18 16:22] VITALS: BP 107/67
[2018-08-18] MEDS: DiphenhydrAMINE HCL 25 MG CAPSULE PO SCH (20:07)
[2018-08-18] MEDS: DIVALPROEX SODIUM 250 MG ER TABLET PO SCH (20:07)
[2018-08-18] MEDS: OLANZapine 10 MG TABLET PO SCH (20:08)
[2018-08-19 05:47] VITALS: BP 120/61
[2018-08-19 08:06] VITALS: BP 118/74
[2018-08-19] MEDS: AmLODIPine BESYLATE 2.5 MG TABLET PO SCH (09:19)
[2018-08-19] MEDS: SERTRALINE HCL 100 MG TABLET PO SCH (09:20)
[2018-08-19 16:12] VITALS: BP 117/63
[2018-08-19] MEDS: DiphenhydrAMINE HCL 25 MG CAPSULE PO SCH (20:08)
[2018-08-19] MEDS: OLANZapine 10 MG TABLET PO SCH (20:09)
[2018-08-19] MEDS: DIVALPROEX SODIUM 250 MG ER TABLET PO SCH (20:09)
[2018-08-20 00:05] VITALS: BP 105/63
[2018-08-20] MEDS: SERTRALINE HCL 100 MG TABLET PO SCH (08:54)
[2018-08-20] MEDS: AmLODIPine BESYLATE 2.5 MG TABLET PO SCH (08:54)
[2018-08-20 09:12] VITALS: BP 132/82
[2018-08-20 16:14] VITALS: BP 108/63
[2018-08-20] MEDS: OLANZapine 10 MG TABLET PO SCH (20:04)
[2018-08-20] MEDS: DIVALPROEX SODIUM 250 MG ER TABLET PO SCH (20:04)
[2018-08-20] MEDS: DiphenhydrAMINE HCL 25 MG CAPSULE PO SCH (20:04)
[2018-08-21 06:21] VITALS: BP 110/68
[2018-08-21 08:23] VITALS: BP 129/60
[2018-08-21] MEDS: AmLODIPine BESYLATE 2.5 MG TABLET PO SCH (08:50)
[2018-08-21] MEDS: SERTRALINE HCL 100 MG TABLET PO SCH (08:50)
[2018-08-21 16:08] VITALS: BP 135/99
[2018-08-21] MEDS: OLANZapine 10 MG TABLET PO SCH (20:03)
[2018-08-21] MEDS: DIVALPROEX SODIUM 250 MG ER TABLET PO SCH (20:03)
[2018-08-21] MEDS: DiphenhydrAMINE HCL 25 MG CAPSULE PO SCH (20:03)
[2018-08-22 06:37] VITALS: BP 114/70
[2018-08-22 08:04] VITALS: BP 128/62
[2018-08-22 08:19] VITALS: BP 132/77
[2018-08-22] MEDS: SERTRALINE HCL 100 MG TABLET PO SCH (08:20)
[2018-08-22] MEDS: AmLODIPine BESYLATE 2.5 MG TABLET PO SCH (08:20)
[2018-08-22] MEDS: MAG HYDROX/AL HYDROX/SIMETH ES 30 ML SUSPENSION UDCUP PO PRN ×2 (13:15→23:52)
[2018-08-22 16:01] VITALS: BP 110/76
[2018-08-22] MEDS: OLANZapine 10 MG TABLET PO SCH (20:21)
[2018-08-22] MEDS: DiphenhydrAMINE HCL 25 MG CAPSULE PO SCH (20:21)
[2018-08-22] MEDS: DIVALPROEX SODIUM 250 MG ER TABLET PO SCH (20:21)
[2018-08-23 00:20] VITALS: BP 107/68
[2018-08-23 07:53] VITALS: BP 125/76
[2018-08-23 08:00] VITALS: BP 125/76
[2018-08-23] MEDS: SERTRALINE HCL 100 MG TABLET PO SCH (08:25)
[2018-08-23] MEDS: AmLODIPine BESYLATE 2.5 MG TABLET PO SCH (08:25)
[2018-08-23] MEDS: MAG HYDROX/AL HYDROX/SIMETH ES 30 ML SUSPENSION UDCUP PO PRN (08:25)
[2018-08-23 16:00] VITALS: BP 108/62
[2018-08-23] MEDS: DiphenhydrAMINE HCL 25 MG CAPSULE PO SCH (21:09)
[2018-08-23] MEDS: OLANZapine 10 MG TABLET PO SCH (21:10)
[2018-08-23] MEDS: DIVALPROEX SODIUM 250 MG ER TABLET PO SCH (21:10)
[2018-08-24 07:16] VITALS: BP 112/61
[2018-08-24] MEDS: AmLODIPine BESYLATE 2.5 MG TABLET PO SCH (08:22)
[2018-08-24] MEDS: SERTRALINE HCL 100 MG TABLET PO SCH (08:22)
[2018-08-24 09:00] VITALS: BP 103/60
[2018-08-24 16:34] VITALS: BP 82/53
[2018-08-24] MEDS: OLANZapine 10 MG TABLET PO SCH (20:03)
[2018-08-24] MEDS: DIVALPROEX SODIUM 250 MG ER TABLET PO SCH (20:03)
[2018-08-24] MEDS: DiphenhydrAMINE HCL 25 MG CAPSULE PO SCH (20:03)
[2018-08-25 06:09] VITALS: BP 108/64
[2018-08-25 08:00] VITALS: BP 109/64
[2018-08-25] MEDS: SERTRALINE HCL 100 MG TABLET PO SCH (08:11)
[2018-08-25] MEDS: AmLODIPine BESYLATE 2.5 MG TABLET PO SCH (09:14)
[2018-08-25 16:30] VITALS: BP 100/60
[2018-08-25] MEDS: OLANZapine 10 MG TABLET PO SCH (20:04)
[2018-08-25] MEDS: DiphenhydrAMINE HCL 25 MG CAPSULE PO SCH (20:04)
[2018-08-25] MEDS: DIVALPROEX SODIUM 250 MG ER TABLET PO SCH (20:05)
[2018-08-26 06:04] VITALS: BP 104/66
[2018-08-26 08:04] VITALS: BP 111/60
[2018-08-26 09:40] VITALS: BP 119/79
[2018-08-26] MEDS: SERTRALINE HCL 100 MG TABLET PO SCH (09:48)
[2018-08-26] MEDS: AmLODIPine BESYLATE 2.5 MG TABLET PO SCH (09:50)
[2018-08-26 16:02] VITALS: BP 105/71
[2018-08-26] MEDS: DIVALPROEX SODIUM 250 MG ER TABLET PO SCH (20:10)
[2018-08-26] MEDS: DiphenhydrAMINE HCL 25 MG CAPSULE PO SCH (20:11)
[2018-08-26] MEDS: OLANZapine 10 MG TABLET PO SCH (20:11)
[2018-08-27 06:01] VITALS: BP 112/74
[2018-08-27 09:06] VITALS: BP 111/63
[2018-08-27] MEDS: AmLODIPine BESYLATE 2.5 MG TABLET PO SCH (10:29)
[2018-08-27] MEDS: SERTRALINE HCL 100 MG TABLET PO SCH (10:29)
[2018-08-27 17:17] VITALS: BP 95/58
[2018-08-27] MEDS: DIVALPROEX SODIUM 250 MG ER TABLET PO SCH (20:16)
[2018-08-27] MEDS: OLANZapine 10 MG TABLET PO SCH (20:16)
[2018-08-27] MEDS: DiphenhydrAMINE HCL 25 MG CAPSULE PO SCH (20:16)
[2018-08-28 06:27] VITALS: BP 108/68
[2018-08-28 08:13] VITALS: BP 110/62
[2018-08-28] MEDS: AmLODIPine BESYLATE 2.5 MG TABLET PO SCH (09:00)
[2018-08-28] MEDS: SERTRALINE HCL 100 MG TABLET PO SCH (10:59)
[2018-08-28] MEDS: DiphenhydrAMINE HCL 25 MG CAPSULE PO SCH (20:46)
[2018-08-28] MEDS: DIVALPROEX SODIUM 250 MG ER TABLET PO SCH (20:47)
[2018-08-28] MEDS: OLANZapine 10 MG TABLET PO SCH (20:47)
[2018-08-29 06:48] VITALS: BP 108/60
[2018-08-29 08:07] VITALS: BP 122/71
[2018-08-29] MEDS: SERTRALINE HCL 100 MG TABLET PO SCH (08:34)
[2018-08-29] MEDS: AmLODIPine BESYLATE 2.5 MG TABLET PO SCH (08:34)
[2018-08-29 16:36] VITALS: BP 97/54
[2018-08-29] MEDS: OLANZapine 10 MG TABLET PO SCH (20:00)
[2018-08-29] MEDS: DIVALPROEX SODIUM 250 MG ER TABLET PO SCH (20:00)
[2018-08-29] MEDS: DiphenhydrAMINE HCL 25 MG CAPSULE PO SCH (20:00)
[2018-08-30 01:11] VITALS: BP 116/63
[2018-08-30 08:02] VITALS: BP 108/69
[2018-08-30] MEDS: AmLODIPine BESYLATE 2.5 MG TABLET PO SCH (09:01)
[2018-08-30] MEDS: SERTRALINE HCL 100 MG TABLET PO SCH (09:01)
[2018-08-30 17:43] VITALS: BP 110/72
[2018-08-30] MEDS: DIVALPROEX SODIUM 250 MG ER TABLET PO SCH (21:14)
[2018-08-30] MEDS: DiphenhydrAMINE HCL 25 MG CAPSULE PO SCH (21:14)
[2018-08-30] MEDS: OLANZapine 10 MG TABLET PO SCH (21:14)
[2018-08-31 00:53] VITALS: BP 103/64
[2018-08-31 08:17] VITALS: BP 114/72
[2018-08-31] MEDS: AmLODIPine BESYLATE 2.5 MG TABLET PO SCH (10:12)
[2018-08-31] MEDS: SERTRALINE HCL 100 MG TABLET PO SCH (10:12)
[2018-08-31] MEDS ORDERED: AMLO2.5T3 PO (11:13)
== END 2018-08-31 13:30 | disposition home or self-care (01) | DRG 750 ==
LOC: EMS 11:12 → B2S 15:48
PROVIDERS: ADMIT Psychiatry & Neurology Psychiatry; ATTEND Psychiatry & Neurology Psychiatry
DX: F25.0 Schizoaffective disorder, bipolar type (principal); R45.851 Suicidal ideations; G25.9 Extrapyramidal and movement disorder, unspecified; F17.200 Nicotine dependence, unspecified, uncomplicated; Z28.21 Immunization not carried out because of patient refusal; F41.9 Anxiety disorder, unspecified; I12.9 Hypertensive chronic kidney disease with stage 1 through stage 4 chronic kidney disease, or unspecified chronic kidney disease; N18.9 Chronic kidney disease, unspecified; E87.6 Hypokalemia; G89.29 Other chronic pain; M54.9 Dorsalgia, unspecified; F10.10 Alcohol abuse, uncomplicated; Z78.1 Physical restraint status; Z71.41 Alcohol abuse counseling and surveillance of alcoholic
CPT/HCPCS: 83036; 84132; G0480